=== PATIENT | male | born 1985 | race Caucasian/White ===

== ENCOUNTER → 2016-10-26 | Outpatient (CLI) | payer BC ==
--- NOTE | 2016-10-26 13:00 | DIAGNOSTIC IMAGING REPORT ---
ULTRASOUND TESTES AND SCROTUM CLINICAL HISTORY: Left testicular pain. COMPARISON STUDY: No priors. TECHNIQUE: Real-time, grayscale, and color Doppler sonography of the testes and scrotum is performed. Images are reviewed in the transverse and longitudinal planes. FINDINGS: The testes are normal in size and homogeneous in echotexture. The right testis measures 5.2 x 2.5 x 4.2 cm and the left testis measures 5.0 x 2.6 x 4.1 cm. No intratesticular mass is seen. Testicular blood flow is normal and symmetric. Normal Doppler waveforms are identified in both testes. The epididymal heads are normal in appearance. The right epididymal head measures 1.2 cm in length and the left epididymal head measures 1.2 cm in length. Small bilateral epididymal head cysts measure up to 5 mm. There is a trace right-sided hydrocele. A small left-sided varicocele measures up to 3 mm. No right-sided varicocele is seen. There is no sonographic evidence of left inguinal hernia. No left inguinal hernia could be elicited by having the patient perform the Valsalva maneuver. IMPRESSION: 1. The testes are normal in appearance. No acute sonographic abnormality is identified. 2. There is no sonographic evidence of left inguinal hernia. 3. Small left-sided varicocele. Electronically signed by: Eddy Edgar M.D. 10/26/2016 12:59 PM Dictated Date/Time: 10/26/2016 12:56 PM
== END | disposition home or self-care (01) ==
LOC: C.ULTRBC 12:22
PROVIDERS: ATTEND Nurse Practitioner Adult Health
DX: N50.812 Left testicular pain (principal); I86.1 Scrotal varices

== ENCOUNTER → 2017-10-01 | Outpatient (CLI) | payer BC | END | disposition home or self-care (01) | LOC: C.PATHSPEC 15:18 | PROVIDERS: ATTEND Urology | DX: Z30.2 Encounter for sterilization (principal) ==

== ENCOUNTER → 2018-02-17 | Outpatient (CLI) | payer BC | END | disposition home or self-care (01) | LOC: C.RDSM 13:13 | PROVIDERS: ATTEND Orthopaedic Surgery Sports Medicine | DX: M25.571 Pain in right ankle and joints of right foot (principal); X58.XXXA Exposure to other specified factors, initial encounter ==